=== PATIENT | female | born 1955 | race Caucasian/White ===

== ENCOUNTER 2017-07-23 09:43 | Emergency (ER) | payer OTHER, SELFPAY ==
[2017-07-23 09:43] VITALS: BP 109/61; PULSE 99; RESP 20; TEMP 36.7; O2SAT 97; BMI 34.5
--- NOTE | 2017-07-23 09:57 | RAD_ITS ---
STUDY: X-RAY - LUMBAR SPINE REASON FOR EXAM: Female, 62 years old. Fall 3 days ago with low back pain and spasm TECHNIQUE: 3 view(s) of the lumbar spine were obtained. COMPARISON: None FINDINGS: Normal lumbar lordosis. There is no substantial scoliosis. There is a normal alignment of the vertebrae. There appears to be an acute compression fracture of the superior endplate of L1. Remaining vertebral body heights are within normal limits. Mild multilevel degenerative disc disease. The soft tissue structures are unremarkable. RAD/Lumbar Spine 2 or 3 Views IMPRESSION: Acute compression fracture of the superior endplate of L1. Electronically Signed: Siva Ames DO at 10:56 EDT Tel , Service support ,
--- NOTE | 2017-07-23 10:08 | ED.DCSUM_ITS ---
- ER Visit Summary Date of Service: 07/23/17 Chief Complaint: Back pain History of Present Illness: The patient is a 62 F with low back pain. She fell days ago and landed on her butt. She was not having a lot of back pain at that time but did have right foot pain and was found to have a metatarsal fracture. She presents today in a walking boot. Since the fall, she has had increasing low back pain, worse on the right side. No weakness or numbness. No abdominal pain or GI symptoms. No urinary symptoms or incontinence. She has a remote history of cancer but has been in remission for 30 years. No history of bony disease or frequent fractures. No fevers, infectious symptoms, or history of immune compromise. Physical Examination: Afebrile and vital signs unremarkable. Patient is sitting upright and appears uncomfortable when she moves her back, but is otherwise in no acute distress. Walking boot is in place. Abdomen soft and nontender without masses. Back is tender to palpation over the right paraspinal region of the lower lumbar spine. No spinal tenderness. Hips and legs otherwise unremarkable. Neurovascular intact distally. Test Results: Lumbar x-rays pending. Emergency Department Course and Treatment: Patient was treated with Toradol and Norflex while awaiting results. Please note that the patient has an allergy to Flexeril, hives. She said she tolerated other muscle relaxers in the past and is willing to try Norflex. X-rays show an acute L1 compression fracture at the superior endplate. Patient received Dilaudid subcutaneous here. She would like to try to go home. I called her PCPs on-call partner to arrange follow-up. They will call her tomorrow. She should return if she has new or worsening issues. Treatment Plan: As above Disposition: Discharge Impression: 1. Acute L1 compression fracture This note was generated with [employer] dictation software. It may contain incorrect words, spelling, and punctuation that were not noted in review of the chart prior to signing ED Disposition - Plan for ED Patient: Chief Complaint: Back Referrals: Aryan Smalls MD [Primary Care Provider] -
[2017-07-23] MEDS: Ketorolac 30 MG/ML Syringe IM (10:18)
[2017-07-23] MEDS: Orphenadrine 60 MG/2 ML Ampul IM (10:18)
[2017-07-23] MEDS: HYDROmorphone 1 MG/ML Syringe SC (11:31)
--- NOTE | 2017-07-23 11:39 | ED.DEP ---
ED Disposition - Plan for ED Patient: Chief Complaint: Back Instructions: Back Fracture (Compression Fracture) Referrals: Aryan Smalls MD [Primary Care Provider] -
[2017-07-23 12:06] VITALS: BP 124/79; PULSE 64; RESP 16; O2SAT 99
== END 2017-07-23 12:09 | disposition home or self-care (01) ==
PROVIDERS: Emergency Provider Emergency Medicine; Family Provider Family Medicine; PCP Family Medicine
DX: S32.019A Unspecified fracture of first lumbar vertebra, initial encounter for closed fracture (principal); W19.XXXA Unspecified fall, initial encounter; Y93.9 Activity, unspecified; Y92.89 Other specified places as the place of occurrence of the external cause; Y99.9 Unspecified external cause status; Z85.3 Personal history of malignant neoplasm of breast
CPT/HCPCS: 72100; 99282